=== PATIENT | female | born 1975 | race Caucasian/White ===

== ENCOUNTER 2021-08-26 07:31 | Emergency (ER) | payer SELFPAY ==
--- NOTE | 2021-08-26 08:31 | RAD REPORT ---
EXAM DESCRIPTION: CT - Head Brain Wo Cont - 08/26/2021 8:19 am CLINICAL HISTORY: acute onset dizziness, hypertension Headache, drowsiness, hypertension COMPARISON: No comparisons TECHNIQUE: All CT scans are performed using dose optimization technique as appropriate and may inclu de automated exposure control or mA/KV adjustment according to patient size. FINDINGS: No intracranial hemorrhage, hydrocephalus or extra-axial fluid collection.No areas of brai n edema or evidence of midline shift. The paranasal sinuses and mastoids are clear. The calvarium is intact. IMPRESSION: No acute intracranial abnormality.
--- NOTE | 2021-08-26 08:58 | RAD REPORT ---
EXAM DESCRIPTION: MRI - Brain Wo Cont - 08/26/2021 8:49 am CLINICAL HISTORY: acute onset dizziness, headache, HTN Headache, drowsiness, CVA symptomology COMPARISON: Head Brain Wo Cont dated 08/26/2021 TECHNIQUE: Multi-sequence, multiplanar MR imaging of the brain was performed without contrast. FINDINGS: No intracranial hemorrhage, hydrocephalus or extra-axial fluid collections.Minimal periven tricular chronic microvascular ischemic changes. No edema or shift of midline structures. No findings to suspect brain mass. DWI is negative for acute CVA. Midline structures are normally formed. Mastoid air cells and paranasal sinuses are clear. IMPRESSION: Negative for acute CVA or other acute intracranial finding.
[2021-08-26 09:31] LABS: Absolute Lymphocytes (CBC) 2.7 K/uL (0.7-4.9); Hematocrit 43.1 % (36.0-45.0); Lymphocytes % 30.7 % (15.3-44.8); MPV 8.1 fL (7.6-11.3); RBC Red Blood Cell Count 4.59 M/uL (3.86-4.86)
[2021-08-26] MEDS ORDERED: NA CHLORIDE 0.9% 1,000 ML ONE (09:35)
[2021-08-26] MEDS ORDERED: ONDANSETRON 4 MG/2 ML VIAL ONE (09:35)
[2021-08-26] MEDS ORDERED: MECLIZINE HCL 12.5 MG TAB ONE (09:35)
[2021-08-26 09:43] LABS: BUN Blood Urea Nitrogen 11 mg/dL (7-18); Bicarbonate 26 mmol/L (21-32); Glucose Level 98 mg/dL (74-106); Potassium 4.5 mmol/L (3.5-5.1); Sodium Level 141 mmol/L (136-145)
[2021-08-26 09:57] LABS: Urine Blood Trace-intact (Negative); Urine Glucose Negative (Negative); Urine Protein Negative (Negative); Urine Specific Gravity 1.015 (1.005-1.030)
--- NOTE | 2021-08-26 09:58 | ER ---
Nurse's Notes [facility] Name: Candice Mireles Age: 46 yrs Sex: Female : 1975 Arrival Date: 08/26/2021 Time: 07:40 Bed 9 Private MD: Diagnosis: Benign paroxysmal vertigo, unspecified ear;Other peripheral vertigo;Essential (primary) hypertension Presentation: 08/26 07:41 Chief complaint: Patient states: Dizziness started suddenly while getting up to sign in [facility] for work. Dizziness has only gotten worse. States she felt this way when she was first diagnosed with high BP. EMS states: DESTINI: BP 180/111, BP 171/113. Coronavirus screen: Vaccine status: Patient reports receiving the 2nd dose of the covid vaccine. Client denies travel out of the [place] in the last 14 days. At this time, the client does not indicate any symptoms associated with coronavirus-19. Ebola Screen: Patient denies travel to an Ebola-affected area in the 21 days before illness onset. Initial Sepsis Screen: Does the patient meet any 2 criteria? No. Patient's initial sepsis screen is negative. Does the patient have a suspected source of infection? No. Patient's initial sepsis screen is negative. Risk Assessment: Do you want to hurt yourself or someone else? Patient reports no desire to harm self or others. Onset of symptoms was August 26, 2021. 07:41 Method Of Arrival: EMS: [facility] 07:41 Acuity: JAVIER 3 ll1 Triage Assessment: 07:44 General: Appears uncomfortable, Behavior is cooperative, appropriate for age. Pain: ll1 Complains of pain in face Quality of pain is described as aching. Neuro: Reports dizziness, headache. Cardiovascular: No deficits noted. 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 - Social history:: Smoking status: Patient reports the use of cigarette tobacco products, denies chronic smoking, but will smoke occasionally, Reported history of juuling and/or vaping. - Family history:: not pertinent. - Hospitalizations: : No recent hospitalization is reported. Screenin:18 Abuse screen: Denies threats or abuse. Nutritional screening: No deficits noted. ll1 Tuberculosis screening: No symptoms or risk factors identified. Fall Risk IV access (20 points). Total Lyons Fall Scale indicates No Risk (0-24 pts). Assessment: 10:15 Reassessment: No changes from previously documented assessment. Patient and/or family ll1 updated on plan of care and expected duration. Pain level reassessed. Patient is alert, oriented x 3, equal unlabored respirations, skin warm/dry/pink. Patient states feeling better. Vital Signs: 07:41 BP 140 / 89; Pulse 77; Resp 16; Temp 98.4; Pulse Ox 100% ; Weight 74.84 kg; Height 5 ll1 ft. 2 in. (157.48 cm); Pain 1/10; 10:15 BP 156 / 81; Pulse 64; Resp 15; Pulse Ox 100% ; ll1 07:41 Body Mass Index 30.18 (74.84 kg, 157.48 cm) ll1 ED Course: 07:40 Patient arrived in ED. ds1 07:41 Arm band placed on. ll1 07:44 Triage completed. ll1 07:47 Pablo Schwartz MD is Attending Physician. rn 08:20 CT Head Brain wo Cont In Process Unspecified. EDMS 08:37 Brain Wo Cont MRI In Process Unspecified. EDMS 09:35 Inserted saline lock: 20 gauge in right antecubital area, using aseptic technique. ll1 Blood collected. 09:44 Maricarmen Hernandez, SUSHIL is Primary Nurse. ss 09:57 Edward Segura MD is Referral Physician. rn 10:15 Patient has correct armband on for positive identification. Call light in reach. Side ll1 rails up X 1. 10:18 No provider procedures requiring assistance completed. IV discontinued, intact, ll1 bleeding controlled, No redness/swelling at site. Pressure dressing applied. Administered Medications: 09:38 Drug: NS 0.9% 1000 ml Route: IV; Rate: 1000 ml; Site: right antecubital; ss 11:39 Follow up: Response: No adverse reaction; IV Status: Completed infusion; IV Intake: ll1 150ml 09:38 Drug: Meclizine 50 mg Route: PO; ss 10:11 Follow up: Response: No adverse reaction ll1 09:38 Drug: Zofran (Ondansetron) 4 mg Route: IVP; Site: right antecubital; ss 10:11 Follow up: Response: No adverse reaction ll1 Intake: 11:39 IV: 150ml; Total: 150ml. ll1 Outcome: 09:58 Discharge ordered by . rn 10:18 Patient left the ED. ll1 10:18 Discharged to home ambulatory. ll1 10:18 Condition: stable 10:18 Discharge instructions given to patient, Instructed on discharge instructions, follow up and referral plans. medication usage, Demonstrated understanding of instructions, follow-up care, medications, Prescriptions given X 1. Signatures: Dispatcher [employer] [facility] Oxana Tellez ds1 Pablo Schwartz MD MD rn Smirch, Shelby, RN RN ss Lewis, Lynsay, RN RN ll1 Corrections: (The following items were deleted from the chart) 07:45 07:41 BP 140 / 89; Pulse 77bpm; Resp 16bpm; Pulse Ox 100%; Temp 98.4F; Pain 1/10; ll1 ll1 07:46 07:41 Social history: Smoking status: Patient denies any tobacco usage or history of. ll1 ll1
--- NOTE | 2021-08-26 09:58 | EDPHYS ---
Physician Documentation [facility] Name: Candice Mireles Age: 46 yrs Sex: Female : 1975 Arrival Date: 08/26/2021 Time: 07:40 Bed 9 Private MD: ED Physician Pablo Schwartz HPI: 08/26 08:35 This 46 yrs old Female presents to ER via EMS with complaints of Dizziness. rn 08:35 The patient presents with dizziness, generalized weakness, sense of spinning. Onset: rn The symptoms/episode began/occurred this morning. Context: occurred at work, occurred while the patient was at rest, just prior to the episode the patient experienced no apparent symptoms. Modifying factors: The symptoms are alleviated by holding head still, the symptoms are aggravated by movement of head, standing up, changing position. Associated signs and symptoms: Pertinent positives: nausea, Pertinent negatives: abdominal pain, chest pain, confusion, diaphoresis, seizure, shortness of breath, syncope. Severity of symptoms: At their worst the symptoms were moderate in the emergency department the symptoms have improved. The patient has experienced a previous episode. The patient has not recently seen a physician. Patient reports at work and felt dizzy, feels like everything is spinning, worse with head movement and change in position, associated with nausea. This is happened once before she states when diagnosed with high blood pressure. EMS states high blood pressure in route. Blood pressure has improved and symptoms have improved as well. No other focal neurological complaints. And ambulatory.. 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 - Social history:: Smoking status: Patient reports the use of cigarette tobacco products, denies chronic smoking, but will smoke occasionally, Reported history of juuling and/or vaping. - Family history:: not pertinent. - Hospitalizations: : No recent hospitalization is reported. ROS: 08:35 Constitutional: Negative for fever, chills, and weight loss, Eyes: Negative for injury, rn pain, redness, and discharge, Neck: Negative for injury, pain, and swelling, Cardiovascular: Negative for chest pain, palpitations, and edema, Respiratory: Negative for shortness of breath, cough, wheezing, and pleuritic chest pain, Abdomen/GI: Negative for abdominal pain, positive for nausea Back: Negative for injury and pain, : Negative for injury, bleeding, discharge, and swelling, MS/Extremity: Negative for injury and deformity, Skin: Negative for injury, rash, and discoloration, Neuro: For mild headache and dizziness, negative for focal weakness or numbness. Denies slurred speech. Denies vision changes. Exam: 08:35 Constitutional: This is a well developed, well nourished patient who is awake, alert, rn and in no acute distress. Head/Face: Normocephalic, atraumatic. Eyes: Pupils equal round and reactive to light, extra-ocular motions intact. Lids and lashes normal. Conjunctiva and sclera are non-icteric and not injected. Cornea within normal limits. Periorbital areas with no swelling, redness, or edema. Nystagmus when looking to the right along with worsening of dizziness ENT: Mucous membranes Neck: Trachea midline, no thyromegaly or masses palpated, and no cervical lymphadenopathy. Supple, full range of motion without nuchal rigidity, or vertebral point tenderness. No Meningismus. Cardiovascular: Regular rate and rhythm. No pulse deficits. Respiratory: No increased work of breathing, no retractions or nasal flaring. Abdomen/GI: Soft, non-tender Skin: Warm, dry MS/ Extremity: Pulses equal, no cyanosis. Neurovascular intact. Full, normal range of motion. Equal circumference. Neuro: Awake and alert, GCS 15, oriented to person, place, time, and situation. Cranial nerves II-XII grossly intact. Motor strength 5/5 in all extremities. Sensory grossly intact. Cerebellar exam normal. Vital Signs: 07:41 BP 140 / 89; Pulse 77; Resp 16; Temp 98.4; Pulse Ox 100% ; Weight 74.84 kg; Height 5 ll1 ft. 2 in. (157.48 cm); Pain 1/10; 10:15 BP 156 / 81; Pulse 64; Resp 15; Pulse Ox 100% ; ll1 07:41 Body Mass Index 30.18 (74.84 kg, 157.48 cm) ll1 MDM: 07:47 Patient medically screened. rn 09:56 Differential diagnosis: cardiac arrhythmia, CVA, generalized weakness, idiopathic rn dizziness, near-syncope, TIA, vertigo. Data reviewed: vital signs, nurses notes, lab test result(s), EKG, radiologic studies, CT scan, MRI, and as a result, I will discharge patient. Counseling: I had a detailed discussion with the patient and/or guardian regarding: the historical points, exam findings, and any diagnostic results supporting the discharge/admit diagnosis, lab results, radiology results, the need for outpatient follow up, to return to the emergency department if symptoms worsen or persist or if there are any questions or concerns that arise at home. Response to treatment: the patient's symptoms have markedly improved after treatment, ambulatory to room and bathroom now, feels much better, and as a result, I will discharge patient. Special discussion: I discussed with the patient/guardian in detail that at this point there is no indication for admission to the hospital. It is understood, however, that if the symptoms persist or worsen the patient needs to return immediately for re-evaluation. Based on the history and exam findings, there is no indication for further emergent testing or inpatient evaluation. I discussed with the patient/guardian the need to see the neurologist for further evaluation of the symptoms. 08/26 07:56 Order name: CBC with Diff; Complete Time: 09:50 rn 08/26 07:56 Order name: Basic Metabolic Panel; Complete Time: 09:50 rn 08/26 07:56 Order name: CT Head Brain wo Cont; Complete Time: 09:50 rn 08/26 07:56 Order name: Urine Microscopic Only rn 08/26 09:57 Order name: Urine Dipstick-Ancillary EDMS 08/26 10:11 Order name: Urine --Ancillary (enter results) bd 08/26 07:56 Order name: IV Start; Complete Time: 10:11 rn 08/26 07:56 Order name: Urine Dipstick-Ancillary (obtain specimen); Complete Time: 10:11 rn 08/26 07:56 Order name: EKG; Complete Time: 07:57 rn 08/26 07:56 Order name: EKG - Nurse/Tech; Complete Time: 08:01 rn 08/26 07:57 Order name: Brain Wo Cont MRI; Complete Time: 09:50 rn Administered Medications: 09:38 Drug: NS 0.9% 1000 ml Route: IV; Rate: 1000 ml; Site: right antecubital; ss 11:39 Follow up: Response: No adverse reaction; IV Status: Completed infusion; IV Intake: ll1 150ml 09:38 Drug: Meclizine 50 mg Route: PO; ss 10:11 Follow up: Response: No adverse reaction ll1 09:38 Drug: Zofran (Ondansetron) 4 mg Route: IVP; Site: right antecubital; ss 10:11 Follow up: Response: No adverse reaction ll1 Disposition Summary: 08/26/21 09:58 Discharge Ordered Location: Home rn Problem: new rn Symptoms: have improved rn Condition: Stable rn Diagnosis - Benign paroxysmal vertigo, unspecified ear rn - Other peripheral vertigo rn - Essential (primary) hypertension rn Followup: rn - With: Edward Segura MD - When: As needed - Reason: Recheck today's complaints, Re-evaluation by your physician Discharge Instructions: - Discharge Summary Sheet rn - Benign Positional Vertigo rn - Dizziness rn - Hypertension, Adult rn - Vertigo rn Forms: - Medication Reconciliation Form rn - Thank You Letter rn - 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 ll1 ll1
[2021-08-26 10:17] LABS: Urine Specific Gravity/Preg 1.015 (1.005-1.030)
[2021-08-26 10:27] LABS: Urine Bacteria NONE SEEN /HPF (<20); Urine RBC <5 /HPF (NONE SEEN)
[2021-08-26 10:30] VITALS: BP 140/89; TEMP 98.4; O2SAT 100
--- NOTE | 2021-08-27 12:57 | EKG ---
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
== END 2021-08-26 10:18 | disposition home or self-care (01) ==
LOC: ER 07:31
DX: H81.10 Benign paroxysmal vertigo, unspecified ear (principal); H81.399 Other peripheral vertigo, unspecified ear; I10 Essential (primary) hypertension; F17.210 Nicotine dependence, cigarettes, uncomplicated; Z88.5 Allergy status to narcotic agent
CPT/HCPCS: 36415; 70450; 70551; 80048; 81003; 81015; 81025; 85025; 93005; 96361; 96374; 99284; J2405; J7030; J8597